=== PATIENT | male | born 1980 | race Caucasian/White ===

== ENCOUNTER → 2017-01-08 05:01 | Emergency (ER) | payer SELFPAY ==
[~2017-01-08 05:01] MED LIST: Aspirin Low Dose CHEW TAB* 81 MG PO ONE
[2017-01-08 05:44] LABS: Hematocrit 41 % (42-52); Hemoglobin 14.2 g/dl (14.0-18.0); Mean Corpuscular HGB Conc 35 g/dl (31-36); Mean Corpuscular Hemoglobin 31 pg (27-31); Mean Corpuscular Volume 90 fL (80-94); Mean Platelet Volume 9 um3 (7.4-10.4); Red Blood Count 4.55 10^6/ul (4.0-5.4); Red Cell Distribution Width 13 % (10.5-15); White Blood Count 6.4 10^3/ul (3.5-10.8)
[2017-01-08 06:08] LABS: Albumin 4.2 g/dL (3.2-5.2); Calcium 9.3 mg/dL (8.6-10.3); EGFR African American 107.5 (>60); EGFR Non-African American 83.6 (>60); Globulin 2.9 g/dL (2-4); Magnesium 1.8 mg/dL (1.9-2.7); Total Bilirubin 0.3 mg/dL (0.2-1.0); Total Protein 7.1 g/dL (6.4-8.9)
[2017-01-08 06:23] LABS: TSH (Thyroid Stimulating Horm) 3.17 mcIU/mL (0.34-5.60)
[2017-01-08 07:58] VITALS: BP 109/71
--- NOTE | 2017-01-08 08:03 | RAD ---
INDICATION: Chest pain COMPARISON: May 09, 2014 TECHNIQUE: An AP portable view obtained at 0525 hours is submitted. FINDINGS: Bones/Soft Tissues: There are no acute bony findings. Cardiomediastinal: The cardiomediastinal silhouette is normal. Lungs: There are no infiltrates. Pleura: There are no pleural effusions. Other: None IMPRESSION: NO ACTIVE DISEASE.
--- NOTE | 2017-01-08 14:11 | ED ---
Clayton Nolasco Alfonso, scribed for Cyn Long MD on 01/08/17 at 0522 . HPI Chest Pain - HPI Summary HPI Summary: This patient is a 36 year old M BIBA to [facility] accompanied by female SO with a chief complaint of a few seconds of sharp midsternal CP at 0445 today that awoke him from sleep. He has had a similar CP before with neg workups. Pt does not recall a stress test. Pt's SO states that pt does not have insurance, so he does not seek medical care. The patient rates the pain 0/10 in severity. Symptoms aggravated by nothing. Symptoms alleviated by spontaneous resolution. Patient reports SOB, left arm numbness, and dizziness with the CP, now resolved. Tobacco abuse disorder. He has been on suboxone for [address] [facility] after narcotic pill abuse. At time of discharge pt asks for antibiotics for dental pain and swelling and indicated pain, dental caries and swelling at right upper second molar. States he is trying to get to a dentist. No fever. - History of Current Complaint Chief Complaint: EDChestPainROMI Time Seen by Provider: 01/08/17 05:10 Hx Obtained From: Patient, Family/Leather Polisher - female SO Onset/Duration: Started Minutes Ago, Atraumatic, Still Present Time of Onset: 04:45 Timing: Constant, Lasting Seconds Initial Severity: Moderate Current Severity: None Pain Intensity: 0 Pain Scale Used: 0-10 Numeric Chest Pain Location: Mid Sternal Chest Pain Radiates: No Character: Sharp/Stabbing Aggravating Factor(s): Nothing Alleviating Factor(s): Spontaneous Resolution Associated Signs and Symptoms: Positive: Numbness - left arm, Dizziness, Shortness of Breath, Other: - Risk Factors Pulmonary Embolism Risk Factors: Smoking TAD Risk Factors: Smoking - Allergy/Home Medications Allergies/Adverse Reactions: Allergies Allergy/AdvReac Type Severity Reaction Status Date / Time No Known Allergies Allergy Verified 01/08/17 05:08 PMH/Surg Hx/FS Hx/Imm Hx Previously Healthy: No - hx opiate pill abuse, on Suboxone 12/2016 Opthamlomology History: Denies: Hx Legally Blind EENT History: Denies: Hx Deafness Psychiatric History: Reports: Hx Substance Abuse - now on suboxone 12/2016 - Surgical History Surgery Procedure, Year, and Place: finger surgery, hernia surgery Infectious Disease History: No Infectious Disease History: Denies: Traveled Outside the [place] in Last 30 Days - Family History Known Family History: Positive: Other - Cancer, ETOH abuse - Social History Lives: With Family Alcohol Use: Occasionally Hx Substance Use: Yes Substance Use Type: Reports: Prescribed, Other - Suboxone RX now Hx Tobacco Use: Yes Smoking Status (MU): Heavy Every Day Tobacco Smoker Cessation Counseling: Counseled 3+Min - 10 Min Review of Systems Constitutional: Negative Positive: Dental Pain Positive: Chest Pain Positive: Shortness Of Breath Neurological: Other - left arm numbness, and dizziness Psychological: Normal All Other Systems Reviewed And Are Negative: Yes Physical Exam Triage Information Reviewed: Yes Vital Signs On Initial Exam: Initial Vitals Temp Pulse Resp BP Pulse Ox 98.9 F 86 16 151/89 98 01/08/17 05:01 01/08/17 05:01 01/08/17 05:01 01/08/17 05:01 01/08/17 05:01 Vital Signs Reviewed: Yes Appearance: Positive: No Pain Distress, Well-Nourished, Ill-Appearing Skin: Positive: Warm, Skin Color Reflects Adequate Perfusion Head/Face: Positive: Normal Head/Face Inspection Eyes: Positive: Conjunctiva Clear ENT: Positive: Normal ENT inspection Dental: Positive: Percussion Tenderness @ - right upper second molar, Gross Decay/Caries @ - right upper second molar, Other - right upper second molar with gingival swelling, obvious caries Neck: Positive: Supple, Nontender, No Lymphadenopathy Respiratory/Lung Sounds: Positive: Clear to Auscultation, Breath Sounds Present , Other - No respiratory distress Cardiovascular: Positive: RRR, Pulses are Symmetrical in both Upper and Lower Extremities, Other - Brisk capillary refill. Negative: Murmur Abdomen Description: Positive: Nontender, Soft Bowel Sounds: Positive: Present Musculoskeletal: Positive: Strength/ROM Intact Neurological: Positive: Sensory/Motor Intact, Alert, Oriented to Person Place, Time, Normal Gait, Facial Symmetry, Speech Normal Psychiatric: Positive: Normal Diagnostics - Vital Signs Vital Signs Temp Pulse Resp BP Pulse Ox 01/08/17 05:01 98.9 F 86 16 151/89 98 - Laboratory Lab Results: Lab Results 01/08/17 01/08/17 01/08/17 Range/Units 05:25 05:25 05:25 WBC 6.4 (3.5-10.8) 10^3/ul RBC 4.55 (4.0-5.4) 10^6/ul Hgb 14.2 (14.0-18.0) g/dl Hct 41 L (42-52) % MCV 90 (80-94) fL MCH 31 (27-31) pg MCHC 35 (31-36) g/dl RDW 13 (10.5-15) % Plt Count 152 (150-450) 10^3/ul MPV 9 (7.4-10.4) um3 Neut % (Auto) 53.5 (38-83) % Lymph % (Auto) 33.7 (25-47) % Levy % (Auto) 8.4 (1-9) % Eos % (Auto) 3.4 (0-6) % Baso % (Auto) 1.0 (0-2) % Absolute Neuts (auto) 3.4 (1.5-7.7) 10^3/ul Absolute Lymphs (auto) 2.1 (1.0-4.8) 10^3/ul Absolute Monos (auto) 0.5 (0-0.8) 10^3/ul Absolute Eos (auto) 0.2 (0-0.6) 10^3/ul Absolute Basos (auto) 0.1 (0-0.2) 10^3/ul Absolute Nucleated RBC 0 10^3/ul Nucleated RBC % 0 INR (Anticoag Therapy) 0.91 (0.89-1.11) APTT 28.0 (26.0-36.3) seconds D-Dimer, Quantitative < 200 (Less Than 230) ng/mL Sodium 137 (133-145) mmol/L Potassium 4.0 (3.5-5.0) mmol/L Chloride 103 (101-111) mmol/L Carbon Dioxide 31 (22-32) mmol/L Anion Gap 3 (2-11) mmol/L BUN 21 (6-24) mg/dL Creatinine 1.00 (0.67-1.17) mg/dL Est GFR ( Amer) 107.5 (>60) Est GFR (Non-Af Amer) 83.6 (>60) BUN/Creatinine Ratio 21.0 H (8-20) Glucose 93 (70-100) mg/dL Lactic Acid (0.5-2.0) mmol/L Calcium 9.3 (8.6-10.3) mg/dL Magnesium 1.8 L (1.9-2.7) mg/dL Total Bilirubin 0.30 (0.2-1.0) mg/dL AST 27 (13-39) U/L ALT 35 (7-52) U/L Alkaline Phosphatase 56 (34-104) U/L Total Creatine Kinase 85 (10-223) U/L CK-MB (CK-2) 2.5 (0.6-6.3) ng/mL Troponin I 0.00 (<0.04) ng/mL Total Protein 7.1 (6.4-8.9) g/dL Albumin 4.2 (3.2-5.2) g/dL Globulin 2.9 (2-4) g/dL Albumin/Globulin Ratio 1.4 (1-3) TSH 3.17 (0.34-5.60) mcIU/mL 01/08/ Range/Units 05:25 WBC (3.5-10.8) 10^3/ul RBC (4.0-5.4) 10^6/ul Hgb (14.0-18.0) g/dl Hct (42-52) % MCV (80-94) fL MCH (27-31) pg MCHC (31-36) g/dl RDW (10.5-15) % Plt Count (150-450) 10^3/ul MPV (7.4-10.4) um3 Neut % (Auto) (38-83) % Lymph % (Auto) (25-47) % Levy % (Auto) (1-9) % Eos % (Auto) (0-6) % Baso % (Auto) (0-2) % Absolute Neuts (auto) (1.5-7.7) 10^3/ul Absolute Lymphs (auto) (1.0-4.8) 10^3/ul Absolute Monos (auto) (0-0.8) 10^3/ul Absolute Eos (auto) (0-0.6) 10^3/ul Absolute Basos (auto) (0-0.2) 10^3/ul Absolute Nucleated RBC 10^3/ul Nucleated RBC % INR (Anticoag Therapy) (0.89-1.11) APTT (26.0-36.3) seconds D-Dimer, Quantitative (Less Than 230) ng/mL Sodium (133-145) mmol/L Potassium (3.5-5.0) mmol/L Chloride (101-111) mmol/L Carbon Dioxide (22-32) mmol/L Anion Gap (2-11) mmol/L BUN (6-24) mg/dL Creatinine (0.67-1.17) mg/dL Est GFR ( Amer) (>60) Est GFR (Non-Af Amer) (>60) BUN/Creatinine Ratio (8-20) Glucose (70-100) mg/dL Lactic Acid 0.7 (0.5-2.0) mmol/L Calcium (8.6-10.3) mg/dL Magnesium (1.9-2.7) mg/dL Total Bilirubin (0.2-1.0) mg/dL AST (13-39) U/L ALT (7-52) U/L Alkaline Phosphatase (34-104) U/L Total Creatine Kinase (10-223) U/L CK-MB (CK-2) (0.6-6.3) ng/mL Troponin I (<0.04) ng/mL Total Protein (6.4-8.9) g/dL Albumin (3.2-5.2) g/dL Globulin (2-4) g/dL Albumin/Globulin Ratio (1-3) TSH (0.34-5.60) mcIU/mL Result Diagrams: 01/08/17 05:25 01/08/17 05:25 Lab Statement: Any lab studies that have been ordered have been reviewed, and results considered in the medical decision making process. - Radiology CXR Radiology Interpretation Completed By: ED Physician - NAD - EKG 0520 Cardiac Rate: NL EKG Rhythm: Sinus Rhythm - BPM 70 ST Segment: Normal Ectopy: None EKG Interpretation: Normal AV/IV conduction time, QTc, and axis. Re-Evaluation - Re-Evaluation First Eval Re-Evaluation Time: 07:25 Comment: Reviewed labs with patient. He now reports dental pain. Agrees to discharge. Requests urgent RX due to no insurance. Discussed with Dr. Zamora at [facility] who will provide urgent RX paperwork to pt. Chest Pain Course/Dx - Course Assessment/Plan: Patients medications reviewed this visit. In the ED course the patient was given ASA. Troponin and d-dimer both negative. Pt remains pain free. Reports dental pain and obvious dental caries and swelling at right upper second molar. Patient will be discharged with Rx for amoxicillin 500mg tid x 10 days and follow up dentist URI and given referral to [facility] for PCP. The patient and SO are agreeable with this plan. Pt to continue with Dr. Rucker for suboxone treatment. Pt did not receive narcotics in the ED and was not given an Rx for narcotics. - Chest Pain Differential Diagnosis/HQI/PQRI: Acute TN, ACS, Chest Wall, GI Disease, Lower Respiratory Infection, Pulmonary Embolism - Diagnoses Provider Diagnoses: Chest pain, Dental abscess, Tobacco abuse disorder Discharge - Discharge Plan Condition: Stable Disposition: HOME Prescriptions: Amoxicillin PO (*) [Amoxicillin 500 MG CAP*] 500 mg PO TID #30 cap Patient Education Materials: Chest Pain (ED), Dental Abscess (ED) Referrals: [facility] PHYSICIAN REFERRAL [Outside] - 2 Days Additional Instructions: Take the amoxicillin as directed. Return to the ER if any new or worsening symptoms. The documentation as recorded by the Clayton joseph Alfonso accurately reflects the service I personally performed and the decisions made by , Cyn Long MD.
== END | disposition home or self-care (01) ==
LOC: ED 05:01
DX: R07.9 Chest pain, unspecified (principal); K04.7 Periapical abscess without sinus; Z72.0 Tobacco use
CPT/HCPCS: 36415; 71010; 80053; 82550; 82553; 83605; 83735; 84443; 84484; 85025; 85379; 85610; 85730; 93005; 99282; A9270-GY

== ENCOUNTER 2017-10-25 19:16 | Emergency (ER) | payer OTHER ==
[2017-10-25] MEDS ORDERED: EPINEPHrine AMP 1 MG/ML IM ONE (19:21)
[2017-10-25] MEDS ORDERED: diPHENhydraMINE PO* 50 MG PO ONE (19:24)
[2017-10-25] MEDS ORDERED: methylPREDNISolone 125 MG* 2 ML VIAL IM ONE (19:24)
[2017-10-25 19:30] VITALS: BP 100/84
--- NOTE | 2017-10-25 19:33 | UC ---
Throat Pain/Nasal Stuart HPI - HPI Summary HPI Summary: C/O tightness in the throat with sudden onset. Feels SOB. Came on after eating Ramen noodles, spicy chili. Tried to make himself throw up. - History of Current Complaint Stated Complaint: DIFFICULTY SWALLOWING Time Seen by Provider: 10/25/17 19:20 Hx Obtained From: Patient Onset/Duration: Sudden Onset, Lasting Minutes - 40 Cough: None Associated Signs & Symptoms: Positive: Dysphagia, FB Sensation - on the right side Related History: Smoking - Allergies/Home Medications Allergies/Adverse Reactions: Allergies Allergy/AdvReac Type Severity Reaction Status Date / Time No Known Allergies Allergy Verified 10/25/17 19:18 Home Medications: Home Medications Buprenorphine HCl/Naloxone HCl [Suboxone 8 mg-2 mg Sl Film] 1 applic SL TID 04/12 [History Confirmed 10/25/17] Gabapentin 800 mg PO TID 10/25/17 [History Confirmed 10/25/17] PMH/Surg Hx/FS Hx/Imm Hx Other GI/ History: h/o Hep C - Surgical History Surgery Procedure, Year, and Place: finger surgery, hernia surgery - Family History Known Family History: Positive: Other - Cancer, ETOH abuse Negative: Diabetes - Social History Occupation: Unemployed Lives: With Family Alcohol Use: Occasionally Substance Use Type: Prescribed, Other - Suboxone RX now Smoking Status (MU): Heavy Every Day Tobacco Smoker Household Exposure Type: Cigarettes Review of Systems ENT: Sore Throat - throat swelling Respiratory: Shortness Of Breath Is Patient Immunocompromised?: No All Other Systems Reviewed And Are Negative: Yes Physical Exam Triage Information Reviewed: Yes Appearance: Well-Nourished, Pain Distress - anxious appearing Vital Signs Reviewed: Yes Eyes: Positive: Conjunctiva Clear ENT: Positive: Pharynx normal, TMs normal Neck exam: Normal Respiratory: Positive: Lungs clear Cardiovascular Exam: Normal Musculoskeletal Exam: Normal Neurological Exam: Normal Psychological Exam: Normal Skin Exam: Normal Throat Pain/Nasal Course/Dx - Differential Dx/Diagnosis Differential Diagnosis/HQI/PQRI: Epiglottitis, Peritonsillar Abscess, Tonsillitis, URI Provider Diagnoses: Dysphagia Discharge - Sign-Out/Discharge Documenting (check all that apply): Patient Departure All imaging exams completed and their final reports reviewed: No - Discharge Plan Condition: Stable Disposition: HOME Patient Education Materials: Dysphagia (ED) Referrals: No Primary Care Phys,NOPCP [Primary Care Provider] - Additional Instructions: Smoking Cessation Tricks. 1. Cut down by 1 cigarette per day every 2-3 days. Write the number of smokes for that day on the calendar. 2. Identify triggers to smoking: after meals, on the phone, in the car, with coffee, on breaks at work, etc. 3. Formulate a plan with a behavior to replace the smoking. Fireballs in the car , doodle pad on the phone, flavored creamer for the coffee, go for a walk after a meal or on break at work. 4. For stress smokes do deep breathing relaxation. Breath deep in through the nose hold the breath in for a few seconds then breath out slowly through the mouth. IF THE FEELING OF SOMETHING STUCK THERE IS STILL PRESENT IN THE MORNING GO TO THE ER. - Billing Disposition and Condition Condition: STABLE Disposition: Home
[2017-10-25] MEDS ORDERED: EPINEPHRINE 1 MG/ML 1 ML VIAL ONE (19:40)
--- NOTE | 2017-10-26 07:36 | RAD ---
Indication: Cough. 2 views of the soft tissues of the neck demonstrate no prevertebral soft tissue swelling. Epiglottis appears unremarkable. Reversal of the normal lordotic curve of the cervical spine. No evidence of abnormal air-fluid levels are noted. IMPRESSION: Unremarkable soft tissues of the neck. R0
--- NOTE | 2017-10-26 08:00 | UC ---
- Progress Note Progress Note: Patient Name: LANG JORGE Medical Record#: [id number] Ordering Physician: Yosi Hampton MD Acct.#: [id number] : 1980 Age: 37 Sex: M Location: [facility] Exam Date: 10/25/171933 ADM Status: [facility] ER Order Information: NECK SOFT TISSUE Accession Number: [id number] CPT: 84093 Indication: Cough. 2 views of the soft tissues of the neck demonstrate no prevertebral soft tissue swelling. Epiglottis appears unremarkable. Reversal of the normal lordotic curve of the cervical spine. No evidence of abnormal air-fluid levels are noted. IMPRESSION: Unremarkable soft tissues of the neck. R0 <Electronically signed by Callie Hensley MD in [place]> 10/26/17732 Dictated By: Callie Hensley MD Dictated Date/Time: 10/26/17732 Transcribed Date/Time: 10/26/17730 Copy to: CC:Yosi Hampton MD; No Primary Care Phys,NOPCP Imaging - [facility] [address] [place] [address] ph ([phone]) ph ([phone]) ph ([phone]) This report is only to be considered final once signed by the Provider(s) as displayed in the "<Electronically Signed by >" field (s). Absence of a signature indicates the report is in a draft status and still needs to be finalized. In the event this document was created by someone other than the signing Provider, the individual initiating the document will be listed in the "Entered by:" or "Dictated by:" carranza. 1 of 1 Discharge - Sign-Out/Discharge Documenting (check all that apply): Post-Discharge Follow Up All imaging exams completed and their final reports reviewed: Yes - Discharge Plan Condition: Stable Disposition: HOME Patient Education Materials: Dysphagia (ED) Referrals: No Primary Care Phys,NOPCP [Primary Care Provider] - Additional Instructions: Smoking Cessation Tricks. 1. Cut down by 1 cigarette per day every 2-3 days. Write the number of smokes for that day on the calendar. 2. Identify triggers to smoking: after meals, on the phone, in the car, with coffee, on breaks at work, etc. 3. Formulate a plan with a behavior to replace the smoking. Fireballs in the car , doodle pad on the phone, flavored creamer for the coffee, go for a walk after a meal or on break at work. 4. For stress smokes do deep breathing relaxation. Breath deep in through the nose hold the breath in for a few seconds then breath out slowly through the mouth. IF THE FEELING OF SOMETHING STUCK THERE IS STILL PRESENT IN THE MORNING GO TO THE ER. - Billing Disposition and Condition Condition: STABLE Disposition: Home
== END 2017-10-25 20:25 | disposition home or self-care (01) ==
LOC: UCCORT 19:16
DX: R13.10 Dysphagia, unspecified (principal); F17.210 Nicotine dependence, cigarettes, uncomplicated
CPT/HCPCS: 70360; 96372; 99212; A9270-GY; G0463; J0171; J2930